=== PATIENT | female | born 1970 | race American Indian/Alaskan Native ===

== ENCOUNTER 2018-02-14 17:53 | Inpatient (IN) | payer MEDICAID ==
[2018-02-14 18:37] LABS: Basophils % (Auto) 0.7 % (0.0-1.8); Eosinophils % (Auto) 0.3 % (0.0-4.3); Hematocrit 39.9 % (30.3-42.9); Lymphocytes # (Auto) 1.4 K/mm3 (1.2-5.4); Lymphocytes % (Auto) 34.5 % (13.4-35.0); Mean Corpuscular HGB Conc 33 % (30-34); Mean Corpuscular Hemoglobin 33 pg (28-32); Mean Corpuscular Volume 100 fl (79-97); Monocytes # (Auto) 0.5 K/mm3 (0.0-0.8); Monocytes % (Auto) 12.5 % (0.0-7.3); Platelet Count 137 K/mm3 (140-440); Red Blood Count 3.99 M/mm3 (3.65-5.03); Red Cell Distribution Width 14.7 % (13.2-15.2)
[2018-02-14 18:48] LABS: Alanine Aminotransferase 38 units/L (7-56); Albumin 4.2 g/dL (3.9-5); BUN/Creatinine Ratio 9; Blood Urea Nitrogen 7 mg/dL (7-17); Calcium 9.6 mg/dL (8.4-10.2); Hemolysis Index 7; Lipase 72 units/L (13-60)
[2018-02-14 19:19] LABS: Bilirubin,Urine MOD (Negative); Blood,Urine SM (Negative); Color,Urine Amber (Yellow); Mucus,Urine 3+ /HPF
[2018-02-14 19:31] LABS: Protein,Urine >500 mg/dL (Negative)
[2018-02-14 19:38] LABS: Ictotest,Urine Positive (Negative)
[2018-02-14] MEDS ORDERED: ZOFRAN IV ONE (21:24)
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
[2018-02-14] MEDS ORDERED: D5NS 1,000 ML IV SCH ×2 (22:00→23:00)
--- NOTE | 2018-02-14 22:31 | Cat Scan Report ---
FINAL REPORT PROCEDURE: CT ABDOMEN PELVIS W CON TECHNIQUE: Computerized axial tomography of the abdomen and pelvis was performed after the IV injection of iodinated nonionic contrast. HISTORY: epigastric pain, n,v, po intolerance COMPARISON: 02/15/2015 FINDINGS: Visualized lower thorax: No significant abnormality. Liver: There is diffuse low attenuation of the liver, compatible with fatty infiltration. Gallbladder is distended. Common bile duct is dilated up to 8 millimeters in caliber Spleen: Normal size and attenuation. Gallbladder and biliary system: Normal. Pancreas: Normal. Adrenals: Normal. Kidneys: Normal. GI tract: The appendix is visualized and does not appear inflamed. No bowel obstruction or acute inflammation is seen. Lymph nodes and mesentery: Normal. Vasculature: Normal. Bladder: Normal. Reproductive organs: Intrauterine device is located in the lower uterine segment and endocervical canal. Peritoneum: No free fluid. Musculoskeletal structures: There are degenerative disc and facet arthritic changes at L5-S1. Other: None. IMPRESSION: The gallbladder is distended. There is also dilatation of the common bile duct. Intrauterine device is positioned in the lower uterine segment and endocervical canal. Recommend gynecologic consultation. Fatty infiltration of the liver
[2018-02-14] MEDS ORDERED: PEPCID IV ONE (22:38)
[2018-02-14] MEDS ORDERED: ATIVAN IV ONE (23:32)
[2018-02-14] MEDS ORDERED: MAGNESIUM SULFATE 1 GM in NACL 0.9% 50 ML IV ONE (23:33)
--- NOTE | 2018-02-14 23:45 | Ultrasound Report ---
FINAL REPORT EXAM: US ABDOMEN LIMITED HISTORY: n,v abd pain, distended gb on ct COMPARISON: CT abdomen pelvis February 14, 2018. TECHNIQUE: Several real-time grayscale and color Doppler images were obtained. FINDINGS: There is increased echogenicity of the liver compatible with fatty infiltration. Visualized aorta is normal in caliber. Right kidney measures 10.7 centimeters in length. No hydronephrosis or gross focal renal lesion. No shadowing gallstones or gallbladder wall thickening. No pericholecystic fluid. The common bile duct measures 4 millimeters within normal limits. IMPRESSION: No cholelithiasis or biliary dilatation. Diffuse fatty infiltration of the liver.
[2018-02-15] MEDS ORDERED: MORPHINE IV PRN (01:44)
[2018-02-15] MEDS ORDERED: REGLAN IV PRN (01:44)
[2018-02-15] MEDS ORDERED: ZOFRAN IV PRN (01:44)
[2018-02-15] MEDS ORDERED: SODIUM CHLORIDE FLUSH SYRINGE 10 ML IV PRN (01:44)
[2018-02-15] MEDS ORDERED: TYLENOL PO PRN (01:44)
[2018-02-15] MEDS ORDERED: PHENERGAN PR PRN (01:44)
--- NOTE | 2018-02-15 01:44 | History and Physical Report ---
History of Present Illness Date of examination: 02/15/18 History of present illness: 47 year old woman with history of hypertension, GERD comes to the ER for nausea , vomiting, unable to tolerate oral intake for 3 weeks.Also complain of pain inthe epigastric area, sharp, intensity 5/10, intermittent every 5 minutes, no radiation. she had similar symptoms 3 years ago, work up including EGD was negative Review of systems Constitutional: no weight loss, chills Ears, eyes, nose, mouth and throat: no nasal congestion, no nasal discharge, no sinus pressure, no vision change, no red eye. Neck: No neck pain or rigidity. Cardiovascular: no chest pain, palpitation Respiratory: no cough, shortness of breath Gastrointestinal: no hematochezia Genitourinary : no dysuria, frequency , no hematuria Musculoskeletal: no joint swelling or muscle ache Integumentary: no rash, no pruritis Neurological: no parathesias, no numbness, no focal weakness Endocrine: no cold or heat intolerance, no polyuria or polydipsia Hematologic/Lymphatic: no easy bruising, no easy bleeding, no gland swelling Allergic/Immunologic: no urticaria, no angioedema. PAST MEDICAL HISTORY: hypertension,GERD PAST SURGICAL HISTORY: KNEE, SHOULDER SOCIAL HISTORY:Drink 1/2 to 1 pint of liquor every other day, smokes, no drugs FAMILY HISTORY: Hypertension Medications and Allergies Allergies Allergy/AdvReac Type Severity Reaction Status Date / Time latex Allergy Itching Verified 02/14/18 18:00 Penicillins Allergy Angioedema Verified 02/14/18 18:00 Home Medications Medication Instructions Recorded Confirmed Last Taken Type No Known Home Medications [No 02/16/18 02/16/18 Unknown History Reported Home Medications] Exam - Physical Exam Narrative exam: Gen. appearance: Patient lying in bed, no apparent distress HEENT: Normocephalic, atraumatic, pupils equally round and reactive to light, extraocular movement intact, and no sclericterus,. No JVD or thyromegaly or nodule,neck supple, no carotid bruit ,mucous membranes moist, no exudate or erythema Heart: S1, S2, regular rate and rhythm Lungs: Clear bilaterally, breathing comfortable Abdomen: Positive bowel sounds, nontender, nondistended, no organomegaly Extremity: No edema, no cyanosis, clubbing Skin: No rash, nodules, warm, dry Neuro: Oriented 3, cranial nerves II-12 intact, speech is fluent, sensory intact - Constitutional Vitals: Temp Pulse Resp BP Pulse Ox 98.6 F 65 15 133/93 98 02/14/18 18:00 02/14/18 23:00 02/14/18 23:00 02/14/18 23:00 02/14/18 23:00 Results - Labs CBC & Chem 7: 02/16/18 05:27 02/16/18 05:27 Labs: Abnormal lab results 02/14/18 02/14/18 02/14/18 Range/Units 18:24 18:24 19:00 WBC 4.1 L (4.5-11.0) K/mm3 MCV 100 H (79-97) fl MCH 33 H (28-32) pg Plt Count 137 L (140-440) K/mm3 [place] % (Auto) 12.5 H (0.0-7.3) % Sodium 136 L (137-145) mmol/L Chloride 90.7 L (98-107) mmol/L Magnesium (1.7-2.3) mg/dL Total Bilirubin 1.50 H (0.1-1.2) mg/dL AST 147 H (5-40) units/L Lipase 72 H (13-60) units/L Ur Specific [place] 1.033 H (1.003-1.030) 02/14/18 Range/Units 22:30 WBC (4.5-11.0) K/mm3 MCV (79-97) fl MCH (28-32) pg Plt Count (140-440) K/mm3 [place] % (Auto) (0.0-7.3) % Sodium (137-145) mmol/L Chloride (98-107) mmol/L Magnesium 1.50 L (1.7-2.3) mg/dL Total Bilirubin (0.1-1.2) mg/dL AST (5-40) units/L Lipase (13-60) units/L Ur Specific [place] (1.003-1.030) - Imaging and Cardiology CT scan - abdomen: report reviewed CT scan - pelvis: report reviewed US - abdomen: report reviewed Assessment and Plan Assessment Persistent nausea, vomiting, Abdominal pain Alcohol withdrawal Alcohol abuse Thrombocytopenia Plan Admit to medicine Stat IV fluid, antiemetics, consult GI Start CIWA protocol with IV ativan DVT prophalaxis
[2018-02-15] MEDS ORDERED: ATIVAN IV PRN ×2 (01:50)
[2018-02-15 02:49] LABS: Creatine Kinase MB 1.5 ng/mL (0.0-4.0)
[2018-02-15 09:26] LABS: Creatine Kinase MB 1.3 ng/mL (0.0-4.0)
[2018-02-15] MEDS: FOLVITE PO SCH (10:02)
[2018-02-15] MEDS: NACL 0.45% 1000 ML 1,000 ML IV SCH ×2 (10:02→18:04)
[2018-02-15] MEDS: VITAMIN B-1 PO SCH (10:02)
[2018-02-15] MEDS: SODIUM CHLORIDE FLUSH SYRINGE 10 ML IV SCH (10:03)
--- NOTE | 2018-02-15 13:57 | Consultation ---
REFERRING PHYSICIAN: Dr. Ally Azul. INDICATION: 1. Nausea, vomiting. 2. Epigastric pain. HISTORY OF PRESENT ILLNESS: The patient is a 47-year-old black female with history of alcohol use daily who now presents for upper GI symptoms. The patient reports 3-week history of epigastric pain with nausea, vomiting, and inability to keep p.o. down. She reports she had similar symptoms 3 years ago with EGD and other workup negative. She reports no NSAIDs or aspirin. She denies any lower GI symptoms including diarrhea, constipation, or rectal bleeding. The patient subsequently was seen by the Emergency Room and admitted and GI consulted. PAST MEDICAL HISTORY: Hypertension, MS, GERD. MEDICATIONS: See chart. ALLERGIES: PENICILLIN. SOCIAL HISTORY: Positive half a pint to a pint of alcohol a day. FAMILY HISTORY: Negative for colon cancer, IBD, or liver disease. REVIEW OF SYSTEMS: GENERAL: Reports mild weakness. HEENT: No visual complaints or tinnitus. PULMONARY: No shortness of breath, no cough, no chest pain. GASTROINTESTINAL: Reports epigastric pain and nausea, but now better. All points of 13-point review of systems otherwise negative. PHYSICAL EXAMINATION: VITAL SIGNS: Temperature of 98.2, pulse 79, respiration 18, blood pressure 110/69. GENERAL: Fairly nourished female in no acute distress. HEENT: Pupils are equal, round, and reactive. PULMONARY: Clear to auscultation bilaterally. CARDIOVASCULAR: Regular rhythm. Normal S1-S2. ABDOMEN: Positive bowel sounds, soft. SKIN: No obvious rashes. LABORATORY DATA: Labs pertinent for white count of 4.1, hemoglobin and hematocrit of 13 and 39.9, platelet count 137. Chem-7 within normal limits. AST and ALT of 147 and 38, total bilirubin of 1.8, alkaline phosphatase of 232. CT scan showed a slightly distended gallbladder and slightly dilated common bile duct. Ultrasound showed no gallstones and a normal common bile duct. ASSESSMENT AND PLAN: A 47-year-old female with history of chronic alcohol abuse now presents with epigastric pain with nausea, vomiting after eating. CT scan did raise the possibility of mild dilated common bile duct, which appeared normal on ultrasound. She reports her pain is now better. Management is noted below. PLAN: 1. We will review CT scan and ultrasound. 2. Antiemetics and pain medications p.r.n. 3. Watch for signs of alcohol withdrawal with CIWA protocol in place. 4. We will start p.o. with soft diet and advance based on progress. 5. We will follow. JOB# [id number] CAB/NTS
[2018-02-16] MEDS: SODIUM CHLORIDE FLUSH SYRINGE 10 ML IV SCH ×3 (01:38→21:27)
[2018-02-16] MEDS: NACL 0.45% 1000 ML 1,000 ML IV SCH ×2 (01:38→21:27)
[2018-02-16 05:40] LABS: Hematocrit 33.6 % (30.3-42.9); Hemoglobin 11.1 gm/dl (10.1-14.3); Mean Corpuscular HGB Conc 33 % (30-34); Mean Corpuscular Hemoglobin 33 pg (28-32); Mean Corpuscular Volume 100 fl (79-97); Platelet Count 104 K/mm3 (140-440); Red Blood Count 3.35 M/mm3 (3.65-5.03); Red Cell Distribution Width 14.3 % (13.2-15.2)
[2018-02-16 05:41] LABS: Basophils % (Auto) 0.5 % (0.0-1.8); Eosinophils % (Auto) 0.8 % (0.0-4.3); Lymphocytes # (Auto) 1.1 K/mm3 (1.2-5.4); Lymphocytes % (Auto) 41.7 % (13.4-35.0); Monocytes # (Auto) 0.3 K/mm3 (0.0-0.8); Monocytes % (Auto) 10.9 % (0.0-7.3)
[2018-02-16 06:51] LABS: BUN/Creatinine Ratio 6; Blood Urea Nitrogen 4 mg/dL (7-17); Calcium 8.3 mg/dL (8.4-10.2); Hemolysis Index 12
[2018-02-16] MEDS: FOLVITE PO SCH (09:59)
[2018-02-16] MEDS: VITAMIN B-1 PO SCH (10:00)
--- NOTE | 2018-02-16 13:25 | Gastroenterology Consultation ---
History of Present Illness - Reason for Consult Consult date: 02/16/18 persistent N/V Requesting physician: WENDY REYES Medications and Allergies Allergies Allergy/AdvReac Type Severity Reaction Status Date / Time latex Allergy Itching Verified 02/14/18 18:00 Penicillins Allergy Angioedema Verified 02/14/18 18:00 Home Medications Medication Instructions Recorded Confirmed Last Taken Type No Known Home Medications [No 02/16/18 02/16/18 Unknown History Reported Home Medications] Active Meds: Active Medications Acetaminophen (Tylenol) 650 mg PO Q4H PRN PRN Reason: Pain MILD(1-3)/Fever >100.5/SANTIAGO Folic Acid (Folvite) 1 mg PO QDAY [facility] Last Admin: 02/16/18 09:59 Dose: 1 mg Sodium Chloride (Nacl 0.45% 1000 Ml) 1,000 mls @ 100 mls/hr IV DIRECT [facility] Last Admin: 02/16/18 01:38 Dose: 100 mls/hr Lorazepam (Ativan) 2 mg IV Q1HR PRN PRN Reason: CIWA-Ar 8-15 Last Admin: 02/15/18 18:04 Dose: 2 mg Lorazepam (Ativan) 4 mg IV Q1HR PRN PRN Reason: CIWA-Ar 16-25 Metoclopramide HCl (Reglan) 10 mg IV Q6H PRN PRN Reason: Nausea And Vomiting Morphine Sulfate (Morphine) 2 mg IV Q4H PRN PRN Reason: Pain, Moderate (4-6) Ondansetron HCl (Zofran) 4 mg IV Q4H PRN PRN Reason: Nausea And Vomiting Promethazine HCl (Phenergan) 25 mg IN Q6H PRN PRN Reason: N/V IF NPO AND NO IV ACCESS Sodium Chloride (Sodium Chloride Flush Syringe 10 Ml) 10 ml IV BID [facility] Last Admin: 02/16/18 10:00 Dose: 10 ml Sodium Chloride (Sodium Chloride Flush Syringe 10 Ml) 10 ml IV PRN PRN PRN Reason: LINE FLUSH Thiamine HCl (Vitamin B-1) 100 mg PO DAILY [facility] Last Admin: 02/16/18 10:00 Dose: 100 mg Exam - Constitutional Vital Signs: Temp Pulse Resp BP Pulse Ox 98.8 F 90 20 135/101 99 02/16/18 08:15 02/16/18 10:57 02/16/18 10:00 02/16/18 08:15 02/16/18 08:15 - Labs CBC & Chem 7: 02/16/18 05:27 02/16/18 05:27 Lab Results: Laboratory Results - last 24 hr 02/16/18 02/16/18 05:27 05:27 WBC 2.6 L RBC 3.35 L Hgb 11.1 Hct 33.6 D MCV 100 H MCH 33 H MCHC 33 RDW 14.3 Plt Count 104 L Lymph % (Auto) 41.7 H Greene % (Auto) 10.9 H Eos % (Auto) 0.8 Baso % (Auto) 0.5 Lymph # 1.1 L Greene # 0.3 Eos # 0.0 Baso # 0.0 Seg Neutrophils % 46.1 Seg Neutrophils # 1.2 L Sodium 138 Potassium 3.3 L Chloride 98.4 Carbon Dioxide 20 L Anion Gap 23 BUN 4 L Creatinine 0.7 Estimated GFR > 60 BUN/Creatinine Ratio 6 Glucose 87 Calcium 8.3 L
--- NOTE | 2018-02-16 14:37 | Progress Note ---
Assessment and Plan Assessment and plan: 47 year old woman with history of hypertension, GERD comes to the ER for nausea , vomiting, unable to tolerate ora intake for 3 weeks.Also complain of pain inthe epigastric area, sharp, intensity 5/10, intermittent every 5 minutes, no radiation. she had similar symptoms 3 years ago, work up including EGD was negative Persistent nausea, vomiting, resolving abdominal pain, GI on board, for HIDA scan Alcohol withdrawal, cont CIWA protocol, last drink was 7 days ago, appears to be resolving Alcohol abuse, counseled, says she has outpatient connection to rehab and detox Thrombocytopenia due to etoh abuse stable History Interval history: she says that shakes have stopped, she normall gets them when she stops drinking , drinks half a bottle of vodka daily Review of systems Constitutional: No fevers, no malaise, no joint pains CVS: No chest pain, no orthopnea, no dyspnea on exertion, no pedal edema GI: No abdominal pain, no diarrhea, no vomiting, no constipation Respiratory: No shortness of breath, no wheezing, no coughing Hospitalist Physical - Physical exam Narrative exam: General.: Appears well, no distress, nontoxic HEENT: Moist mucous membranes, extraocular muscles intact, no lymphadenopathy Neck: supple Cardiac: S1-S2 heard Lungs: clear to auscultation bilaterally Abdomen: soft , nontender, nondistended, bowel sounds positive Extremities: no edema clubbing or cyanosis, Skin: no rash or lesions Neurologic: no gross focal deficits, gait somewhat hesistant, but does not appear unsteady Psych: appropriate behavior, appropriate mood, corporative, judgment intact - Constitutional Vitals: Temp Pulse Resp BP Pulse Ox 98.8 F 90 20 135/101 99 02/16/18 08:15 02/16/18 10:57 02/16/18 10:00 02/16/18 08:15 02/16/18 08:15 Results - Labs CBC & Chem 7: 02/16/18 05:27 02/16/18 05:27 Labs: Laboratory Last Values WBC 2.6 K/mm3 (4.5-11.0) L 02/16/18 05:27 RBC 3.35 M/mm3 (3.65-5.03) L 02/16/18 05:27 Hgb 11.1 gm/dl (10.1-14.3) 02/16/18 05:27 Hct 33.6 % (30.3-42.9) D 02/16/18 05:27 MCV 100 fl (79-97) H 02/16/18 05:27 MCH 33 pg (28-32) H 02/16/18 05:27 MCHC 33 % (30-34) 02/16/18 05:27 RDW 14.3 % (13.2-15.2) 02/16/18 05:27 Plt Count 104 K/mm3 (140-440) L 02/16/18 05:27 Lymph % (Auto) 41.7 % (13.4-35.0) H 02/16/18 05:27 [place] % (Auto) 10.9 % (0.0-7.3) H 02/16/18 05:27 Eos % (Auto) 0.8 % (0.0-4.3) 02/16/18 05:27 Baso % (Auto) 0.5 % (0.0-1.8) 02/16/18 05:27 Lymph # 1.1 K/mm3 (1.2-5.4) L 02/16/18 05:27 [place] # 0.3 K/mm3 (0.0-0.8) 02/16/18 05:27 Eos # 0.0 K/mm3 (0.0-0.4) 02/16/18 05:27 Baso # 0.0 K/mm3 (0.0-0.1) 02/16/18 05:27 Seg Neutrophils % 46.1 % (40.0-70.0) 02/16/18 05:27 Seg Neutrophils # 1.2 K/mm3 (1.8-7.7) L 02/16/18 05:27 Sodium 138 mmol/L (137-145) 02/16/18 05:27 Potassium 3.3 mmol/L (3.6-5.0) L 02/16/18 05:27 Chloride 98.4 mmol/L (98-107) 02/16/18 05:27 Carbon Dioxide 20 mmol/L (22-30) L 02/16/18 05:27 Anion Gap 23 mmol/L 02/16/18 05:27 BUN 4 mg/dL (7-17) L 02/16/18 05:27 Creatinine 0.7 mg/dL (0.7-1.2) 02/16/18 05:27 Estimated GFR > 60 ml/min 02/16/18 05:27 BUN/Creatinine Ratio 6 % 02/16/18 05:27 Glucose 87 mg/dL (65-100) 02/16/18 05:27 Calcium 8.3 mg/dL (8.4-10.2) L 02/16/18 05:27 Magnesium 1.50 mg/dL (1.7-2.3) L 02/14/18 22:30 Total Bilirubin 1.50 mg/dL (0.1-1.2) H 02/14/18 18:24 AST 147 units/L (5-40) H 02/14/18 18:24 ALT 38 units/L (7-56) 02/14/18 18:24 Alkaline Phosphatase 64 units/L (35-129) 02/14/18 18:24 Total Creatine Kinase 200 units/L (30-135) H 02/15/18 08:48 CK-MB (CK-2) 1.3 ng/mL (0.0-4.0) 02/15/18 08:48 CK-MB (CK-2) Rel Index 0.6 (0-4) 02/15/18 08:48 Troponin T < 0.010 ng/mL (0.00-0.029) 02/15/18 08:48 Total Protein 8.0 g/dL (6.3-8.2) 02/14/18 18:24 Albumin 4.2 g/dL (3.9-5) 02/14/18 18:24 Albumin/Globulin Ratio 1.1 % 02/14/18 18:24 Lipase 72 units/L (13-60) H 02/14/18 18:24 HCG, Qual Negative (Negative) 02/14/18 18:24 Urine Color Marli (Yellow) 02/14/18 19:00 Urine Turbidity Clear (Clear) 02/14/18 19:00 Urine pH 5.0 (5.0-7.0) 02/14/18 19:00 Ur Specific [place] 1.033 (1.003-1.030) H 02/14/18 19:00 Urine Protein >500 mg/dL (Negative) 02/14/18 19:00 Urine Glucose (UA) Neg mg/dL (Negative) 02/14/18 19:00 Urine Ketones 80 mg/dL (Negative) 02/14/18 19:00 Urine Blood Sm (Negative) 02/14/18 19:00 Urine Nitrite Neg (Negative) 02/14/18 19:00 Urine Bilirubin Mod (Negative) 02/14/18 19:00 Urine Ictotest Positive (Negative) 02/14/18 19:00 Urine Urobilinogen 4.0 mg/dL (<2.0) 02/14/18 19:00 Ur Leukocyte Esterase Tr (Negative) 02/14/18 19:00 Urine WBC (Auto) 6.0 /HPF (0.0-6.0) 02/14/18 19:00 Urine RBC (Auto) 5.0 /HPF (0.0-6.0) 02/14/18 19:00 U Epithel Cells (Auto) 8.0 /HPF (0-13.0) 02/14/18 19:00 Urine Mucus 3+ /HPF 02/14/18 19:00
--- NOTE | 2018-02-16 17:00 | Progress Note ---
Assessment and Plan 1. N/V - etiology unclear. May be related to EtOH. Drinks 1/2 pt vodka qod. Need to exclude biliary. No clear indication for EGD. - HIDA with CCK - monitor off EtOH 2. EtOH abuse - pt states she went through Rehab and told she is not an alcoholic. However, as above, and does feel shaky. - monitor for DTs, and watch LFTs Subjective Date of service: 02/16/18 Interval history: Improved. Has nausea, no vomiting. Estefania po somewhat. Objective - Constitutional Vitals: Vital Signs - 12hr 02/16/18 02/16/18 02/16/18 05:11 08:15 10:00 Temperature 98.9 F 98.8 F Pulse Rate 76 72 Respiratory 20 16 Rate Respiratory 20 Rate [Abdomen] Blood Pressure Blood Pressure 132/97 135/101 [Left] O2 Sat by Pulse 99 99 Oximetry 02/16/18 02/16/18 10:57 16:14 Temperature 98.6 F Pulse Rate 90 76 Respiratory 19 Rate Respiratory Rate [Abdomen] Blood Pressure 141/102 Blood Pressure [Left] O2 Sat by Pulse 100 Oximetry General appearance: Present: no acute distress, other (anxious, feels shaky) - EENT Eyes: PERRL, EOM intact ENT: hearing intact - Respiratory Respiratory effort: normal - Gastrointestinal General gastrointestinal: Present: soft, non-tender - Labs CBC & Chem 7: 02/16/18 05:27 02/16/18 05:27 Labs: Abnormal lab results 02/16/18 02/16/18 Range/Units 05:27 05:27 WBC 2.6 L (4.5-11.0) K/mm3 RBC 3.35 L (3.65-5.03) M/mm3 MCV 100 H (79-97) fl MCH 33 H (28-32) pg Plt Count 104 L (140-440) K/mm3 Lymph % (Auto) 41.7 H (13.4-35.0) % [place] % (Auto) 10.9 H (0.0-7.3) % Lymph # 1.1 L (1.2-5.4) K/mm3 Seg Neutrophils # 1.2 L (1.8-7.7) K/mm3 Potassium 3.3 L (3.6-5.0) mmol/L Carbon Dioxide 20 L (22-30) mmol/L BUN 4 L (7-17) mg/dL Calcium 8.3 L (8.4-10.2) mg/dL
[2018-02-16] MEDS: PROTONIX IV SCH (21:26)
[2018-02-17] MEDS: NACL 0.45% 1000 ML 1,000 ML IV SCH (07:21)
--- NOTE | 2018-02-17 08:43 | Progress Note ---
Assessment and Plan Assessment and plan: 47 year old woman with history of hypertension, GERD comes to the ER for nausea , vomiting, unable to tolerate ora intake for 3 weeks.Also complain of pain inthe epigastric area, sharp, intensity 5/10, intermittent every 5 minutes, no radiation. she had similar symptoms 3 years ago, work up including EGD was negative Persistent nausea, vomiting, resolving abdominal pain, GI on board, for HIDA scan Alcohol withdrawal, cont CIWA protocol, last drink was 7 days ago, appears to be resolving Alcohol abuse, counseled, says she has outpatient connection to rehab and detox Thrombocytopenia due to etoh abuse stable Diarrhea; send stool for studies, imodium prn, Ataxia; pt consult History Interval history: she says that shakes have stopped, she normall gets them when she stops drinking , drinks half a bottle of vodka daily c/o watery diarrhea Review of systems Constitutional: No fevers, no malaise, no joint pains CVS: No chest pain, no orthopnea, no dyspnea on exertion, no pedal edema GI: No abdominal pain, no diarrhea, no vomiting, no constipation Respiratory: No shortness of breath, no wheezing, no coughing Hospitalist Physical - Physical exam Narrative exam: General.: Appears well, no distress, nontoxic HEENT: Moist mucous membranes, extraocular muscles intact, no lymphadenopathy Neck: supple Cardiac: S1-S2 heard Lungs: clear to auscultation bilaterally Abdomen: soft , nontender, nondistended, bowel sounds positive Extremities: no edema clubbing or cyanosis, Skin: no rash or lesions Neurologic: no gross focal deficits, gait somewhat hesistant, but does not appear unsteady Psych: appropriate behavior, appropriate mood, corporative, judgment intact - Constitutional Vitals: Temp Pulse Resp BP Pulse Ox 98.4 F 68 18 148/104 98 02/17/18 07:40 02/17/18 07:40 02/17/18 07:40 02/17/18 07:40 02/17/18 07:40 General appearance: Present: no acute distress, other (anxious, feels shaky) Results - Labs CBC & Chem 7: 02/16/18 05:27 02/16/18 05:27 Labs: Laboratory Last Values WBC 2.6 K/mm3 (4.5-11.0) L 02/16/18 05:27 RBC 3.35 M/mm3 (3.65-5.03) L 02/16/18 05:27 Hgb 11.1 gm/dl (10.1-14.3) 02/16/18 05:27 Hct 33.6 % (30.3-42.9) D 02/16/18 05:27 MCV 100 fl (79-97) H 02/16/18 05:27 MCH 33 pg (28-32) H 02/16/18 05:27 MCHC 33 % (30-34) 02/16/18 05:27 RDW 14.3 % (13.2-15.2) 02/16/18 05:27 Plt Count 104 K/mm3 (140-440) L 02/16/18 05:27 Lymph % (Auto) 41.7 % (13.4-35.0) H 02/16/18 05:27 [place] % (Auto) 10.9 % (0.0-7.3) H 02/16/18 05:27 Eos % (Auto) 0.8 % (0.0-4.3) 02/16/18 05:27 Baso % (Auto) 0.5 % (0.0-1.8) 02/16/18 05:27 Lymph # 1.1 K/mm3 (1.2-5.4) L 02/16/18 05:27 [place] # 0.3 K/mm3 (0.0-0.8) 02/16/18 05:27 Eos # 0.0 K/mm3 (0.0-0.4) 02/16/18 05:27 Baso # 0.0 K/mm3 (0.0-0.1) 02/16/18 05:27 Seg Neutrophils % 46.1 % (40.0-70.0) 02/16/18 05:27 Seg Neutrophils # 1.2 K/mm3 (1.8-7.7) L 02/16/18 05:27 Sodium 138 mmol/L (137-145) 02/16/18 05:27 Potassium 3.3 mmol/L (3.6-5.0) L 02/16/18 05:27 Chloride 98.4 mmol/L (98-107) 02/16/18 05:27 Carbon Dioxide 20 mmol/L (22-30) L 02/16/18 05:27 Anion Gap 23 mmol/L 02/16/18 05:27 BUN 4 mg/dL (7-17) L 02/16/18 05:27 Creatinine 0.7 mg/dL (0.7-1.2) 02/16/18 05:27 Estimated GFR > 60 ml/min 02/16/18 05:27 BUN/Creatinine Ratio 6 % 02/16/18 05:27 Glucose 87 mg/dL (65-100) 02/16/18 05:27 Calcium 8.3 mg/dL (8.4-10.2) L 02/16/18 05:27 Magnesium 1.50 mg/dL (1.7-2.3) L 02/14/18 22:30 Total Bilirubin 1.50 mg/dL (0.1-1.2) H 02/14/18 18:24 AST 147 units/L (5-40) H 02/14/18 18:24 ALT 38 units/L (7-56) 02/14/18 18:24 Alkaline Phosphatase 64 units/L (35-129) 02/14/18 18:24 Total Creatine Kinase 200 units/L (30-135) H 02/15/18 08:48 CK-MB (CK-2) 1.3 ng/mL (0.0-4.0) 02/15/18 08:48 CK-MB (CK-2) Rel Index 0.6 (0-4) 02/15/18 08:48 Troponin T < 0.010 ng/mL (0.00-0.029) 02/15/18 08:48 Total Protein 8.0 g/dL (6.3-8.2) 02/14/18 18:24 Albumin 4.2 g/dL (3.9-5) 02/14/18 18:24 Albumin/Globulin Ratio 1.1 % 02/14/18 18:24 Lipase 72 units/L (13-60) H 02/14/18 18:24 HCG, Qual Negative (Negative) 02/14/18 18:24 Urine Color Marli (Yellow) 02/14/18 19:00 Urine Turbidity Clear (Clear) 02/14/18 19:00 Urine pH 5.0 (5.0-7.0) 02/14/18 19:00 Ur Specific [place] 1.033 (1.003-1.030) H 02/14/18 19:00 Urine Protein >500 mg/dL (Negative) 02/14/18 19:00 Urine Glucose (UA) Neg mg/dL (Negative) 02/14/18 19:00 Urine Ketones 80 mg/dL (Negative) 02/14/18 19:00 Urine Blood Sm (Negative) 02/14/18 19:00 Urine Nitrite Neg (Negative) 02/14/18 19:00 Urine Bilirubin Mod (Negative) 02/14/18 19:00 Urine Ictotest Positive (Negative) 02/14/18 19:00 Urine Urobilinogen 4.0 mg/dL (<2.0) 02/14/18 19:00 Ur Leukocyte Esterase Tr (Negative) 02/14/18 19:00 Urine WBC (Auto) 6.0 /HPF (0.0-6.0) 02/14/18 19:00 Urine RBC (Auto) 5.0 /HPF (0.0-6.0) 02/14/18 19:00 U Epithel Cells (Auto) 8.0 /HPF (0-13.0) 02/14/18 19:00 Urine Mucus 3+ /HPF 02/14/18 19:00
[2018-02-17] MEDS ORDERED: IMODIUM A-D PO PRN (12:09)
[2018-02-17] MEDS ORDERED: VASELINE LIP THERAPY TP PRN (12:09)
[2018-02-17] MEDS ORDERED: APRESOLINE IV PRN (12:09)
--- NOTE | 2018-02-17 13:39 | Event Note ---
Date: 02/17/18 Patient off floor for HIDA scan. Further recommendations pending results.
[2018-02-17] MEDS ORDERED: KINEVAC IV ONE ×2 (14:33→15:00)
[2018-02-17] MEDS ORDERED: WATER FOR INJ (PF) 10 ML ONE (14:34)
[2018-02-17] MEDS ORDERED: WATER FOR INJ (PF) IV ONE (14:38)
--- NOTE | 2018-02-17 15:42 | Ultrasound Report ---
ULTRASOUND PELVIC COMPLETE ULTRASOUND TRANSVAGINAL HISTORY: Intrauterine device misplaced. COMPARISON: CT abdomen pelvis with contrast dated 02/14/18. TECHNIQUE: Transabdominal and transvaginal ultrasound with color doppler interrogation. FINDINGS: Uterus: The uterus is anteverted. The uterus measures 10.2 x 3.9 x 4.9 cm. A 2.4 cm intramural fibroid is identified in the anterior wall. A 3.1 cm intramural fibroid is noted in the posterior wall. Normal cervix. Endometrium: The endometrium measures 5 mm in thickness. The intrauterine device is identified and appears to have a low position within the endometrial canal. The IUD extends from the lower uterine segment into the endocervical canal. Right ovary: Not identified. Left ovary: 2.8 x 2.4 x 3.1 cm. A 2.6 cm cyst is identified in the left ovary. No pelvic fluid or mass is identified. Normal color doppler interrogation. IMPRESSION: Low position of the IUD as outlined above. No evidence for uterine perforation. Uterine fibroids. 2.6 cm left ovarian cyst.
--- NOTE | 2018-02-17 16:07 | Nuclear Medicine Report ---
HEPATOBILIARY SCAN: History: Nausea and vomiting. Following the injection of the radionuclide, serial scanning was obtained over the right upper quadrant. Initial imaging of the liver demonstrates a relatively normal activity pattern. Progressive concentration of the radionuclide in the bile ducts, with filling of both the gallbladder and small bowel, is identified within a normal time period. The gallbladder ejection fraction is severely decreased measuring 9%. The patient reports reproduced pain and cramps during the infusion of CCK. IMPRESSION: The cystic duct is patent. Decreased gallbladder ejection fraction consistent with biliary dyskinesia. Symptomatology as described.
[2018-02-17] MEDS: FOLVITE PO SCH (17:35)
[2018-02-17] MEDS: SODIUM CHLORIDE FLUSH SYRINGE 10 ML IV SCH ×2 (17:35→21:38)
[2018-02-17] MEDS: PROTONIX IV SCH ×2 (17:35→21:38)
[2018-02-17] MEDS: VITAMIN B-1 PO SCH (17:36)
--- NOTE | 2018-02-17 18:16 | History and Physical Report ---
History of Present Illness Date of examination: 02/17/18 Date of admission: 02/15/18 01:44 Chief complaint: consulted for misplaced IUD History of present illness: this is a 47 yo G3 admitted for nausea and vomiting and abdominal pain. She states that durig her cycles they are unbearable with lots of cramping. Incidental finding of IUD in lower segment of the lower uterine segment. I was called to evaluate and treat. US performed that verified the misplaced position of the IUD. Patient states that she has paraguard for years but recently last 4 months of dysmenorrhea Past History Past Medical History: hypertension, GERD Past Surgical History: other (knee surgery ) [employer] History: fibroids Family/Genetic History: hypertension Social history: single, alcohol abuse. denies: smoking, prescription drug abuse Medications and Allergies Allergies Allergy/AdvReac Type Severity Reaction Status Date / Time latex Allergy Itching Verified 02/14/18 18:00 Penicillins Allergy Angioedema Verified 02/14/18 18:00 Home Medications Medication Instructions Recorded Confirmed Last Taken Type No Known Home Medications [No 02/16/18 02/16/18 Unknown History Reported Home Medications] Active Meds: Active Medications Acetaminophen (Tylenol) 650 mg PO Q4H PRN PRN Reason: Pain MILD(1-3)/Fever >100.5/SANTIAGO Folic Acid (Folvite) 1 mg PO QDAY ABBI Last Admin: 02/17/18 17:35 Dose: 1 mg Hydralazine HCl (Apresoline) 5 mg IV Q4HR PRN PRN Reason: BP >160/100 Hydrophilic Ointment (Vaseline Lip Therapy) 1 applic TP DIRECT PRN PRN Reason: Dry Lips Loperamide HCl (Imodium A-D) 2 mg PO Q2H PRN PRN Reason: Diarrhea Last Admin: 02/17/18 17:40 Dose: 2 mg Lorazepam (Ativan) 2 mg IV Q1HR PRN PRN Reason: CIWA-Ar 8-15 Last Admin: 02/15/18 18:04 Dose: 2 mg Lorazepam (Ativan) 4 mg IV Q1HR PRN PRN Reason: CIWA-Ar 16-25 Metoclopramide HCl (Reglan) 10 mg IV Q6H PRN PRN Reason: Nausea And Vomiting Morphine Sulfate (Morphine) 2 mg IV Q4H PRN PRN Reason: Pain, Moderate (4-6) Ondansetron HCl (Zofran) 4 mg IV Q4H PRN PRN Reason: Nausea And Vomiting Pantoprazole Sodium (Protonix) 40 mg IV BID [facility] Last Admin: 02/17/18 17:35 Dose: 40 mg Promethazine HCl (Phenergan) [address] Q6H PRN PRN Reason: N/V IF NPO AND NO IV ACCESS Sodium Chloride (Sodium Chloride Flush Syringe 10 Ml) 10 ml IV BID [facility] Last Admin: 02/17/18 17:35 Dose: 10 ml Sodium Chloride (Sodium Chloride Flush Syringe 10 Ml) 10 ml IV PRN PRN PRN Reason: LINE FLUSH Thiamine HCl (Vitamin B-1) 100 mg PO DAILY [facility] Last Admin: 02/17/18 17:36 Dose: 100 mg Review of Systems Gastrointestinal: abdominal pain, nausea, vomiting - Vital Signs Vital signs: Vital Signs Temp Pulse Resp Pulse Ox 98.6 F 137 H 18 100 02/14/18 18:00 02/14/18 18:00 02/14/18 18:00 02/14/18 18:00 Temp Pulse Resp BP Pulse Ox 98.5 F 77 18 146/111 94 02/17/18 16:00 02/17/18 16:00 02/17/18 16:00 02/17/18 16:00 02/17/18 16:00 - Physical Exam Breasts: Positive: deferred Cardiovascular: Regular rate, Normal S1 Lungs: Positive: Clear to auscultation, Normal air movement Abdomen: Positive: normal appearance, soft, normal bowel sounds. Negative: distention, tenderness, guarding Genitourinary (Female): Positive: normal external genitalia, normal perenium Vulva: both: normal Vagina: Positive: normal moisture Cervix: Positive: other (iud string visualized ). Negative: lesion Uterus: Positive: normal size, normal contour Anus/Rectum: Positive: normal perianal skin Extremities: Positive: normal Deep Tendon Reflex Grade: Normal +2 Results Result Diagrams: 02/16/18 05:27 02/16/18 05:27 All other labs normal. Ultrasound: report reviewed CT scan - abdomen: report reviewed Assessment and Plan I have identified this patient to be Corinna Woodth She presents today for the removal of her IUD due to incorrect placement The IUD was placed at [facility] She has had the IUD in place for several years . The IUD type is Paraguard. She is up to date on her pap smear screening and sexually transmitted illness testing. She does have abdominal pain with cycles currently no pain, fever, chills nor dysuria. Patient's last menstrual period was 3 weeks ago expecting her period next week Friday She would like to have another IUD inserted:yes Procedure Note: A consent form was signed prior to the removal and is to be scanned into the record. She appears well, in no apparent distress. Alert, pleasant and cooperative. Vital signs are as documented in vital signs section. Time out taken: 615p Following information identified: Patient:Aileen Wood Procedure: IUD removal Pelvic exam: uterus ANTEVERTED Cervix (ANTERIOR. No cervical motion tenderness. No adnexal tenderness. No cervicitis. Speculum placed. The IUD strings ARE seen at external os and grasped with sterile ring forceps and removed WITHOUT difficulty. An IUD hook or other device WAS NOT needed.Nina did tolerate the procedure well. There was a complication.
[2018-02-18] MEDS: FOLVITE PO SCH (09:21)
[2018-02-18] MEDS: VITAMIN B-1 PO SCH (09:21)
[2018-02-18] MEDS: PROTONIX IV SCH ×2 (09:21→21:32)
[2018-02-18] MEDS: SODIUM CHLORIDE FLUSH SYRINGE 10 ML IV SCH ×2 (09:22→21:32)
--- NOTE | 2018-02-18 09:43 | Gastroenterology Progress Note ---
Assessment and Plan 1.persistent N/V 2.epigastric pain 3.ETOH abuse -afebrile -WBC-2.6 -CT showed fatty infiltration of the liver -abd U/S revealed no cholelithiasis or biliary dilation -HIDA scan showed EF of 9% consistent with biliary dyskinesia, but no obstruction -last EGD negative -no placed for repeat EGD at this time -etiology-most likely 2/2 biliary dyskinesia -recommend a surgery consult -alcohol cessaction discussed with patient- (drinks 1/2 pt vodka qod)-monitor for DT -continue to trend labs and supportive care -further management per surgery -will sign off, please call if needed Subjective Date of service: 02/18/18 Principal diagnosis: persistent N/V Interval history: Patient with continued symptoms of abd pain and N/V x 1 episode this am. Unable to tolerate PO intake. Objective - Constitutional Vitals: Temp Pulse Resp BP Pulse Ox 98.2 F 60 18 134/73 98 02/18/18 07:58 02/18/18 07:58 02/18/18 07:58 02/18/18 07:58 02/18/18 08:09 General appearance: no acute distress - EENT Eyes: PERRL, EOM intact ENT: hearing intact - Respiratory Respiratory: bilateral: CTA - Cardiovascular Rhythm: regular Heart Sounds: Present: S1 & S2 - Gastrointestinal General gastrointestinal: Present: soft, tender (epigastric/RUQ/LUQ), non- distended, normal bowel sounds - Neurologic Neurological: alert and oriented x3 - Labs CBC & Chem 7: 02/16/18 05:27 02/16/18 05:27
--- NOTE | 2018-02-18 12:52 | Consultation ---
History of Present Illness Consult date: 02/18/18 Chief complaint: Abdominal pain, nausea, vomiting - History of present illness History of present illness: 47-year-old female with past medical history of hypertension presents to the hospital with complaints of ongoing nausea, vomiting, abdominal pain that started one year ago. The patient states that she is nauseated all of the time and frequently vomits after every meal, or drinking liquids. The emesis is bilious at times and sometimes contains streaks of blood. She states that this started more than 3 years ago and she was worked up by GI and her family practice doctor but no explanation could be found. She states that after this, the symptoms resolved and she had not had problems up until last year. She states that at first, she would throw up occasionally after eating. This has gradually gotten worse and now she throws up with almost every meal. She states that over the last few days she's been having reflux symptoms and has been drinking vodka in order to help with the tenderness in her throat. Patient states she drinks a half point of vodka every other day. Multiple times during the interview, she adamantly states that she has not an alcoholic. In addition to the nausea and vomiting, she complains of upper abdominal pain , nonradiating, which is intermittent, sharp in nature, not related to food intake. Patient states she vomited last night. The patient had a full workup and GI evaluation during this admission. A HIDA scan with EF was performed which shows gallbladder ejection fraction of 9%. Past History Past Medical History: hypertension Past Surgical History: tonsillectomy (right hip and knee surgery), Other Social history: single, alcohol abuse (1/2 pint of vodka every other day). denies: smoking, prescription drug abuse Family history: cancer, hypertension Medications and Allergies Allergies Allergy/AdvReac Type Severity Reaction Status Date / Time latex Allergy Itching Verified 02/14/18 18:00 Penicillins Allergy Angioedema Verified 02/14/18 18:00 Home Medications Medication Instructions Recorded Confirmed Last Taken Type No Known Home Medications [No 02/16/18 02/16/18 Unknown History Reported Home Medications] Active Meds: Active Medications Acetaminophen (Tylenol) 650 mg PO Q4H PRN PRN Reason: Pain MILD(1-3)/Fever >100.5/SANTIAGO Folic Acid (Folvite) 1 mg PO QDAY ABBI Last Admin: 02/18/18 09:21 Dose: 1 mg Hydralazine HCl (Apresoline) 5 mg IV Q4HR PRN PRN Reason: BP >160/100 Hydrophilic Ointment (Vaseline Lip Therapy) 1 applic TP DIRECT PRN PRN Reason: Dry Lips Loperamide HCl (Imodium A-D) 2 mg PO Q2H PRN PRN Reason: Diarrhea Last Admin: 02/17/18 17:40 Dose: 2 mg Lorazepam (Ativan) 2 mg IV Q1HR PRN PRN Reason: CIWA-Ar 8-15 Last Admin: 02/15/18 18:04 Dose: 2 mg Lorazepam (Ativan) 4 mg IV Q1HR PRN PRN Reason: JUNIOR-Ar 16-25 Metoclopramide HCl (Reglan) 10 mg IV Q6H PRN PRN Reason: Nausea And Vomiting Morphine Sulfate (Morphine) 2 mg IV Q4H PRN PRN Reason: Pain, Moderate (4-6) Ondansetron HCl (Zofran) 4 mg IV Q4H PRN PRN Reason: Nausea And Vomiting Last Admin: 02/17/18 21:37 Dose: 4 mg Pantoprazole Sodium (Protonix) 40 mg IV BID [facility] Last Admin: 02/18/18 09:21 Dose: 40 mg Promethazine HCl (Phenergan) 25 mg WI Q6H PRN PRN Reason: N/V IF NPO AND NO IV ACCESS Sodium Chloride (Sodium Chloride Flush Syringe 10 Ml) 10 ml IV BID [facility] Last Admin: 02/18/18 09:22 Dose: 10 ml Sodium Chloride (Sodium Chloride Flush Syringe 10 Ml) 10 ml IV PRN PRN PRN Reason: LINE FLUSH Thiamine HCl (Vitamin B-1) 100 mg PO DAILY [facility] Last Admin: 02/18/18 09:21 Dose: 100 mg Review of Systems All systems: negative (10 point ROS performed and negative except for that listed in HPI) Exam Vital Signs Temp Pulse Resp Pulse Ox 98.6 F 137 H 18 100 02/14/18 18:00 02/14/18 18:00 02/14/18 18:00 02/14/18 18:00 Narrative exam: Gen: AAOx3. NAD ENT: no scleral icterus or conjunctival pallor CV: s1, S2+ resp: CTAB, no w/r/r Abd: soft, NT, ND. no r/r/g Ext: no c/c/e Results - Labs 02/16/18 05:27 02/16/18 05:27 - Imaging CT scan - abdomen: report reviewed, image reviewed CT scan - pelvis: report reviewed, image reviewed US - abdomen: report reviewed, image reviewed Additional studies: HIDA scan with EF Assessment and Plan 47 yo F with biliary dyskinesia, n/v Plan; 1. I had a long discussion with patient regarding results of imaging test. Her symptoms most likely due to biliary dyskinesia and cholecystectomy in light of prior negative workups. I discussed laparoscopic cholecystectomy with the patient. All risks, benefits, and alternatives to surgery were discussed. She understands that if we remove the gallbladder there is a small chance that her symptoms could persist. 2. continue clear liquid diet 3. prn nausea control 4. DVT ppx 5. GI consult notes 6. Patient continues to be symptomatic. Will check with OR for timing and schedule for cholecystectomy. Thank you for this consultation, please call with questions or concerns.
--- NOTE | 2018-02-18 12:59 | Progress Note ---
Assessment and Plan Assessment and plan: 47 year old woman with history of hypertension, GERD comes to the ER for nausea , vomiting, unable to tolerate ora intake for 3 weeks.Also complain of pain in the epigastric area, sharp, intensity 5/10, intermittent every 5 minutes, no radiation. she had similar symptoms 3 years ago, work up including EGD was negative Biliary dyskinesia; planned for lap tamara Alcohol withdrawal, cont CIWA protocol, last drink was 7 days ago, appears to be resolving Alcohol abuse, counseled, says she has outpatient connection to rehab and detox Thrombocytopenia due to etoh abuse stable Diarrhea; resolved Ataxia; pt consult malpositioned IUD has been removed by [employer] History Interval history: she says that shakes have stopped, she normally gets them when she stops drinking, drinks half a bottle of vodka daily diarrhea now resolved Review of systems Constitutional: No fevers, no malaise, no joint pains CVS: No chest pain, no orthopnea, no dyspnea on exertion, no pedal edema GI: c/o RUQ pain, nausea, vomited last night Respiratory: No shortness of breath, no wheezing, no coughing Hospitalist Physical - Physical exam Narrative exam: General.: Appears well, no distress, nontoxic HEENT: Moist mucous membranes, extraocular muscles intact, no lymphadenopathy Neck: supple Cardiac: S1-S2 heard Lungs: clear to auscultation bilaterally Abdomen: soft , nontender, nondistended, bowel sounds positive Extremities: no edema clubbing or cyanosis, Skin: no rash or lesions Neurologic: no gross focal deficits, gait somewhat hesistant, but does not appear unsteady Psych: appropriate behavior, appropriate mood, corporative, judgment intact - Constitutional Vitals: Temp Pulse Resp BP Pulse Ox 98.0 F 65 16 140/108 100 02/18/18 11:46 02/18/18 11:46 02/18/18 11:46 02/18/18 11:46 02/18/18 11:46 General appearance: Present: no acute distress, other (anxious, feels shaky) Results - Labs CBC & Chem 7: 02/16/18 05:27 02/16/18 05:27 Labs: Laboratory Last Values WBC 2.6 K/mm3 (4.5-11.0) L 02/16/18 05:27 RBC 3.35 M/mm3 (3.65-5.03) L 02/16/18 05:27 Hgb 11.1 gm/dl (10.1-14.3) 02/16/18 05:27 Hct 33.6 % (30.3-42.9) D 02/16/18 05:27 MCV 100 fl (79-97) H 02/16/18 05:27 MCH 33 pg (28-32) H 02/16/18 05:27 MCHC 33 % (30-34) 02/16/18 05:27 RDW 14.3 % (13.2-15.2) 02/16/18 05:27 Plt Count 104 K/mm3 (140-440) L 02/16/18 05:27 Lymph % (Auto) 41.7 % (13.4-35.0) H 02/16/18 05:27 [place] % (Auto) 10.9 % (0.0-7.3) H 02/16/18 05:27 Eos % (Auto) 0.8 % (0.0-4.3) 02/16/18 05:27 Baso % (Auto) 0.5 % (0.0-1.8) 02/16/18 05:27 Lymph # 1.1 K/mm3 (1.2-5.4) L 02/16/18 05:27 [place] # 0.3 K/mm3 (0.0-0.8) 02/16/18 05:27 Eos # 0.0 K/mm3 (0.0-0.4) 02/16/18 05:27 Baso # 0.0 K/mm3 (0.0-0.1) 02/16/18 05:27 Seg Neutrophils % 46.1 % (40.0-70.0) 02/16/18 05:27 Seg Neutrophils # 1.2 K/mm3 (1.8-7.7) L 02/16/18 05:27 Sodium 138 mmol/L (137-145) 02/16/18 05:27 Potassium 3.3 mmol/L (3.6-5.0) L 02/16/18 05:27 Chloride 98.4 mmol/L (98-107) 02/16/18 05:27 Carbon Dioxide 20 mmol/L (22-30) L 02/16/18 05:27 Anion Gap 23 mmol/L 02/16/18 05:27 BUN 4 mg/dL (7-17) L 02/16/18 05:27 Creatinine 0.7 mg/dL (0.7-1.2) 02/16/18 05:27 Estimated GFR > 60 ml/min 02/16/18 05:27 BUN/Creatinine Ratio 6 % 02/16/18 05:27 Glucose 87 mg/dL (65-100) 02/16/18 05:27 Calcium 8.3 mg/dL (8.4-10.2) L 02/16/18 05:27 Magnesium 1.50 mg/dL (1.7-2.3) L 02/14/18 22:30 Total Bilirubin 1.50 mg/dL (0.1-1.2) H 02/14/18 18:24 AST 147 units/L (5-40) H 02/14/18 18:24 ALT 38 units/L (7-56) 02/14/18 18:24 Alkaline Phosphatase 64 units/L (35-129) 02/14/18 18:24 Total Creatine Kinase 200 units/L (30-135) H 02/15/18 08:48 CK-MB (CK-2) 1.3 ng/mL (0.0-4.0) 02/15/18 08:48 CK-MB (CK-2) Rel Index 0.6 (0-4) 02/15/18 08:48 Troponin T < 0.010 ng/mL (0.00-0.029) 02/15/18 08:48 Total Protein 8.0 g/dL (6.3-8.2) 02/14/18 18:24 Albumin 4.2 g/dL (3.9-5) 02/14/18 18:24 Albumin/Globulin Ratio 1.1 % 02/14/18 18:24 Lipase 72 units/L (13-60) H 02/14/18 18:24 HCG, Qual Negative (Negative) 02/14/18 18:24 Urine Color Marli (Yellow) 02/14/18 19:00 Urine Turbidity Clear (Clear) 02/14/18 19:00 Urine pH 5.0 (5.0-7.0) 02/14/18 19:00 Ur Specific [place] 1.033 (1.003-1.030) H 02/14/18 19:00 Urine Protein >500 mg/dL (Negative) 02/14/18 19:00 Urine Glucose (UA) Neg mg/dL (Negative) 02/14/18 19:00 Urine Ketones 80 mg/dL (Negative) 02/14/18 19:00 Urine Blood Sm (Negative) 02/14/18 19:00 Urine Nitrite Neg (Negative) 02/14/18 19:00 Urine Bilirubin Mod (Negative) 02/14/18 19: Urine Ictotest Positive (Negative) 02/14/18 19:00 Urine Urobilinogen 4.0 mg/dL (<2.0) 02/14/18 19:00 Ur Leukocyte Esterase Tr (Negative) 02/14/18 19:00 Urine WBC (Auto) 6.0 /HPF (0.0-6.0) 02/14/18 19:00 Urine RBC (Auto) 5.0 /HPF (0.0-6.0) 02/14/18 19:00 U Epithel Cells (Auto) 8.0 /HPF (0-13.0) 02/14/18 19:00 Urine Mucus 3+ /HPF 02/14/18 19:00
[2018-02-19] MEDS: PROTONIX IV SCH ×2 (11:21→21:56)
[2018-02-19] MEDS: FOLVITE PO SCH (11:21)
[2018-02-19] MEDS: VITAMIN B-1 PO SCH (11:21)
[2018-02-19] MEDS: SODIUM CHLORIDE FLUSH SYRINGE 10 ML IV SCH ×2 (11:22→21:56)
--- NOTE | 2018-02-19 14:41 | Progress Note ---
Assessment and Plan 47 yo F with biliary dyskinesia, n/v Plan; 1. Surgery scheduled for tomorrow 02/20 @2:30pm - All risks, benefits, and alternatives to laparoscopic, possible open, cholecystectomy were discussed. Consent obtained 2. continue clear liquid diet, NPO p MN tonight 3. prn nausea control 4. DVT ppx 5. GI consult noted Thank you for this consultation, please call with questions or concerns. Subjective Date of service: 02/19/18 Narrative: Pt seen and examined. Feeling better today. No n/v. Tolerating diet. Objective - General physical appearance Narrative Exam: Gen: AAOx3. NAD CV: S1, S2+ Resp: even and unlabored Abd: soft, NT, ND Ext: no c/c/e - Labs 02/16/18 05:27 02/16/18 05:27
--- NOTE | 2018-02-19 14:45 | Progress Note ---
Assessment and Plan Assessment and plan: 47 year old woman with history of hypertension, GERD comes to the ER for nausea , vomiting, unable to tolerate ora intake for 3 weeks.Also complain of pain in the epigastric area, sharp, intensity 5/10, intermittent every 5 minutes, no radiation. she had similar symptoms 3 years ago, work up including EGD was negative Biliary dyskinesia; planned for lap tamara tomorrow Alcohol withdrawal, cont CIWA protocol, last drink was over a week ago, appears to be resolving Alcohol abuse, counseled, says she has outpatient connection to rehab and detox Thrombocytopenia due to etoh abuse stable Diarrhea; resolved Ataxia; pt consult malpositioned IUD has been removed by [employer] INFORMATION [employer]NAGER Hospitalist Physical - Constitutional Vitals: Temp Pulse Resp BP Pulse Ox 98.3 F 53 L 16 109/69 100 02/19/18 00:25 02/19/18 00:25 02/19/18 00:25 02/18/18 23:56 02/19/18 00:25 General appearance: Present: no acute distress, other (anxious, feels shaky) Results - Labs CBC & Chem 7: 02/16/18 05:27 02/16/18 05:27 Labs: Laboratory Last Values WBC 2.6 K/mm3 (4.5-11.0) L 02/16/18 05:27 RBC 3.35 M/mm3 (3.65-5.03) L 02/16/18 05:27 Hgb 11.1 gm/dl (10.1-14.3) 02/16/18 05:27 Hct 33.6 % (30.3-42.9) D 02/16/18 05:27 MCV 100 fl (79-97) H 02/16/18 05:27 MCH 33 pg (28-32) H 02/16/18 05:27 MCHC 33 % (30-34) 02/16/18 05:27 RDW 14.3 % (13.2-15.2) 02/16/18 05:27 Plt Count 104 K/mm3 (140-440) L 02/16/18 05:27 Lymph % (Auto) 41.7 % (13.4-35.0) H 02/16/18 05:27 [place] % (Auto) 10.9 % (0.0-7.3) H 02/16/18 05:27 Eos % (Auto) 0.8 % (0.0-4.3) 02/16/18 05:27 Baso % (Auto) 0.5 % (0.0-1.8) 02/16/18 05:27 Lymph # 1.1 K/mm3 (1.2-5.4) L 02/16/18 05:27 [place] # 0.3 K/mm3 (0.0-0.8) 02/16/18 05:27 Eos # 0.0 K/mm3 (0.0-0.4) 02/16/18 05:27 Baso # 0.0 K/mm3 (0.0-0.1) 02/16/18 05:27 Seg Neutrophils % 46.1 % (40.0-70.0) 02/16/18 05:27 Seg Neutrophils # 1.2 K/mm3 (1.8-7.7) L 02/16/18 05:27 Sodium 138 mmol/L (137-145) 02/16/18 05:27 Potassium 3.3 mmol/L (3.6-5.0) L 02/16/18 05:27 Chloride 98.4 mmol/L (98-107) 02/16/18 05:27 Carbon Dioxide 20 mmol/L (22-30) L 02/16/18 05:27 Anion Gap 23 mmol/L 02/16/18 05:27 BUN 4 mg/dL (7-17) L 02/16/18 05:27 Creatinine 0.7 mg/dL (0.7-1.2) 02/16/18 05:27 Estimated GFR > 60 ml/min 02/16/18 05:27 BUN/Creatinine Ratio 6 % 02/16/18 05:27 Glucose 87 mg/dL (65-100) 02/16/18 05:27 Calcium 8.3 mg/dL (8.4-10.2) L 02/16/18 05:27 Magnesium 1.50 mg/dL (1.7-2.3) L 02/14/18 22:30 Total Bilirubin 1.50 mg/dL (0.1-1.2) H 02/14/18 18:24 AST 147 units/L (5-40) H 02/14/18 18:24 ALT 38 units/L (7-56) 02/14/18 18:24 Alkaline Phosphatase 64 units/L (35-129) 02/14/18 18:24 Total Creatine Kinase 200 units/L (30-135) H 02/15/18 08:48 CK-MB (CK-2) 1.3 ng/mL (0.0-4.0) 02/15/18 08:48 CK-MB (CK-2) Rel Index 0.6 (0-4) 02/15/18 08:48 Troponin T < 0.010 ng/mL (0.00-0.029) 02/15/18 08:48 Total Protein 8.0 g/dL (6.3-8.2) 02/14/18 18:24 Albumin 4.2 g/dL (3.9-5) 02/14/18 18:24 Albumin/Globulin Ratio 1.1 % 02/14/18 18:24 Lipase 72 units/L (13-60) H 02/14/18 18:24 HCG, Qual Negative (Negative) 02/14/18 18:24 Urine Color Marli (Yellow) 02/14/18 19:00 Urine Turbidity Clear (Clear) 02/14/18 19:00 Urine pH 5.0 (5.0-7.0) 02/14/18 19:00 Ur Specific [place] 1.033 (1.003-1.030) H 02/14/18 19:00 Urine Protein >500 mg/dL (Negative) 02/14/18 19:00 Urine Glucose (UA) Neg mg/dL (Negative) 02/14/18 19:00 Urine Ketones 80 mg/dL (Negative) 02/14/18 19:00 Urine Blood Sm (Negative) 02/14/18 19:00 Urine Nitrite Neg (Negative) 02/14/18 19:00 Urine Bilirubin Mod (Negative) 02/14/18 19:00 Urine Ictotest Positive (Negative) 02/14/18 19:00 Urine Urobilinogen 4.0 mg/dL (<2.0) 02/14/18 19:00 Ur Leukocyte Esterase Tr (Negative) 02/14/18 19:00 Urine WBC (Auto) 6.0 /HPF (0.0-6.0) 02/14/18 19:00 Urine RBC (Auto) 5.0 /HPF (0.0-6.0) 02/14/18 19:00 U Epithel Cells (Auto) 8.0 /HPF (0-13.0) 02/14/18 19:00 Urine Mucus 3+ /HPF 02/14/18 19:00
[2018-02-19] MEDS ORDERED: D5/0.45NS 1,000 ML IV SCH (17:00)
[2018-02-20] MEDS: SODIUM CHLORIDE FLUSH SYRINGE 10 ML IV SCH ×2 (10:00→22:16)
[2018-02-20] MEDS: FOLVITE PO SCH (11:28)
[2018-02-20] MEDS: VITAMIN B-1 PO SCH (11:28)
[2018-02-20] MEDS: PROTONIX IV SCH ×2 (11:28→22:16)
[2018-02-20] MEDS ORDERED: SUBLIMAZE ONE (13:13)
[2018-02-20] MEDS ORDERED: DIPRIVAN 10 MG/ML IV ONE (13:14)
[2018-02-20] MEDS ORDERED: ZEMURON IV ONE (13:16)
[2018-02-20] MEDS ORDERED: MARCAINE 0.5% 30 ML INFILTRATI ONE (13:29)
[2018-02-20] MEDS ORDERED: XYLOCAINE 1% 20 mL ONE (13:29)
[2018-02-20] MEDS ORDERED: NACL 0.9% 1000 ML 1,000 ML ONE (13:32)
--- NOTE | 2018-02-20 13:40 | Anesthesia Consultation ---
Anesthesia Consult and Med Hx Date of service: 02/20/18 - Airway Anesthetic Teeth Evaluation: Good ROM Head & Neck: Adequate Mental/Hyoid Distance: Adequate Mallampati Class: Class II Intubation Access Assessment: Probably Good - Pulmonary Exam CTA: Yes - Cardiac Exam Cardiac Exam: No Murmur - Pre-Operative Health Status ASA Pre-Surgery Classification: ASA2 Proposed Anesthetic Plan: General - Cardiovascular System Hx Hypertension: Yes
[2018-02-20] MEDS ORDERED: DEMEROL IV PRN (13:41)
[2018-02-20] MEDS ORDERED: TORADOL IV PRN (13:41)
[2018-02-20] MEDS ORDERED: NARCAN 0.4 MG/1 ML IV PRN (13:41)
--- NOTE | 2018-02-20 13:41 | Anesthesia Day of Surgery ---
Anesthesia Day of Surgery - Day of Surgery Patient Examined: Yes Patient H&P Reviewed: Yes Patient is NPO: Yes
[2018-02-20] MEDS ORDERED: QUELICIN ONE (13:44)
[2018-02-20] MEDS ORDERED: ePHEDrine 50 MG/5 ML-0.9% NACL IV ONE (13:46)
[2018-02-20] MEDS ORDERED: MARCAINE 0.5% INFILTRATI ONE ×2 (13:59)
[2018-02-20] MEDS ORDERED: XYLOCAINE 1% 20 mL INFILTRATI ONE ×2 (13:59)
[2018-02-20] MEDS ORDERED: LEVAQUIN 500MG/100ML 500 MG/100 ML BAG IV NR (14:00)
[2018-02-20] MEDS ORDERED: NACL 0.9% 1000 ML 1,000 ML IV SCH (14:00)
[2018-02-20] MEDS ORDERED: FLAGYL 500 MG/100 ML 500 MG/100 ML BAG IV NR (14:00)
--- NOTE | 2018-02-20 14:38 | Progress Note ---
Hospitalist Physical - Constitutional Vitals: Temp Pulse Resp BP Pulse Ox 97.9 F 51 L 20 177/100 100 02/20/18 12:25 02/20/18 12:25 02/20/18 12:25 02/20/18 12:25 02/20/18 12:25 General appearance: Present: no acute distress, other (anxious, feels shaky) Results - Labs CBC & Chem 7: 02/16/18 05:27 02/16/18 05:27 Labs: Laboratory Last Values WBC 2.6 K/mm3 (4.5-11.0) L 02/16/18 05:27 RBC 3.35 M/mm3 (3.65-5.03) L 02/16/18 05:27 Hgb 11.1 gm/dl (10.1-14.3) 02/16/18 05:27 Hct 33.6 % (30.3-42.9) D 02/16/18 05:27 MCV 100 fl (79-97) H 02/16/18 05:27 MCH 33 pg (28-32) H 02/16/18 05:27 MCHC 33 % (30-34) 02/16/18 05:27 RDW 14.3 % (13.2-15.2) 02/16/18 05:27 Plt Count 104 K/mm3 (140-440) L 02/16/18 05:27 Lymph % (Auto) 41.7 % (13.4-35.0) H 02/16/18 05:27 [place] % (Auto) 10.9 % (0.0-7.3) H 02/16/18 05:27 Eos % (Auto) 0.8 % (0.0-4.3) 02/16/18 05:27 Baso % (Auto) 0.5 % (0.0-1.8) 02/16/18 05:27 Lymph # 1.1 K/mm3 (1.2-5.4) L 02/16/18 05:27 [place] # 0.3 K/mm3 (0.0-0.8) 02/16/18 05:27 Eos # 0.0 K/mm3 (0.0-0.4) 02/16/18 05:27 Baso # 0.0 K/mm3 (0.0-0.1) 02/16/18 05:27 Seg Neutrophils % 46.1 % (40.0-70.0) 02/16/18 05:27 Seg Neutrophils # 1.2 K/mm3 (1.8-7.7) L 02/16/18 05:27 Sodium 138 mmol/L (137-145) 02/16/18 05:27 Potassium 3.3 mmol/L (3.6-5.0) L 02/16/18 05:27 Chloride 98.4 mmol/L (98-107) 02/16/18 05:27 Carbon Dioxide 20 mmol/L (22-30) L 02/16/18 05:27 Anion Gap 23 mmol/L 02/16/18 05:27 BUN 4 mg/dL (7-17) L 02/16/18 05:27 Creatinine 0.7 mg/dL (0.7-1.2) 02/16/18 05:27 Estimated GFR > 60 ml/min 02/16/18 05:27 BUN/Creatinine Ratio 6 % 02/16/18 05:27 Glucose 87 mg/dL (65-100) 02/16/18 05:27 Calcium 8.3 mg/dL (8.4-10.2) L 02/16/18 05:27 Magnesium 1.50 mg/dL (1.7-2.3) L 02/14/18 22:30 Total Bilirubin 1.50 mg/dL (0.1-1.2) H 02/14/18 18:24 AST 147 units/L (5-40) H 02/14/18 18:24 ALT 38 units/L (7-56) 02/14/18 18:24 Alkaline Phosphatase 64 units/L (35-129) 02/14/18 18:24 Total Creatine Kinase 200 units/L (30-135) H 02/15/18 08:48 CK-MB (CK-2) 1.3 ng/mL (0.0-4.0) 02/15/18 08:48 CK-MB (CK-2) Rel Index 0.6 (0-4) 02/15/18 08:48 Troponin T < 0.010 ng/mL (0.00-0.029) 02/15/18 08:48 Total Protein 8.0 g/dL (6.3-8.2) 02/14/18 18:24 Albumin 4.2 g/dL (3.9-5) 02/14/18 18:24 Albumin/Globulin Ratio 1.1 % 02/14/18 18:24 Lipase 72 units/L (13-60) H 02/14/18 18:24 HCG, Qual Negative (Negative) 02/14/18 18:24 Urine Color Marli (Yellow) 02/14/18 19:00 Urine Turbidity Clear (Clear) 02/14/18 19: Urine pH 5.0 (5.0-7.0) 02/14/18 19:00 Ur Specific [place] 1.033 (1.003-1.030) H 02/14/18 19:00 Urine Protein >500 mg/dL (Negative) 02/14/18 19:00 Urine Glucose (UA) Neg mg/dL (Negative) 02/14/18 19:00 Urine Ketones 80 mg/dL (Negative) 02/14/18 19:00 Urine Blood Sm (Negative) 02/14/18 19: Urine Nitrite Neg (Negative) 02/14/18 19:00 Urine Bilirubin Mod (Negative) 02/14/18 19:00 Urine Ictotest Positive (Negative) 02/14/18 19: Urine Urobilinogen 4.0 mg/dL (<2.0) 02/14/18 19:00 Ur Leukocyte Esterase Tr (Negative) 02/14/18 19:00 Urine WBC (Auto) 6.0 /HPF (0.0-6.0) 02/14/18 19:00 Urine RBC (Auto) 5.0 /HPF (0.0-6.0) 02/14/18 19:00 U Epithel Cells (Auto) 8.0 /HPF (0-13.0) 02/14/18 19:00 Urine Mucus 3+ /HPF 02/14/18 19:00
[2018-02-20] MEDS ORDERED: ROBINUL ONE ×2 (15:04)
[2018-02-20] MEDS ORDERED: ZOFRAN ONE (15:04)
[2018-02-20] MEDS ORDERED: BLOXIVERZ ONE (15:04)
--- NOTE | 2018-02-20 15:32 | Operative Report ---
Operative Report Operative Report: Date of operation: 02/20/18 Preoperative diagnosis: Biliary dyskinesia postOperative diagnoses: Same as above Procedure performed: Laparoscopic cholecystectomy Surgeon: Nano Mijares DO Anesthesia: Gen. endotracheal anesthesia Findings: Distended, bile filled gallbladder. Gallbladder decompressed - 90 mL of green bile were removed. Very fatty liver Specimen: Gallbladder Estimated blood loss: 25 mL Complications: None Disposition: Stable to PACU HPI an indication: 47-year-old female who presented to the hospital with complaints of intractable nausea and vomiting. She was found to have a gallbladder ejection fraction of 9% on HIDA scan. The remainder of the GI workup was negative for any other cause of the nausea and vomiting. The benefits of cholecystectomy were discussed with the patient along with risks and alternatives to surgery. Due to her severe symptoms, and inability to tolerate by mouth, she wished to proceed with surgery. The patient was then consented for a laparoscopic possible open cholecystectomy. All questions were answered. Procedure in detail: The patient was identified in the preoperative area and taken back to the operating room, placed on the operating room table in supine position. After anesthesia was induced, the abdomen was prepped and draped in usual sterile fashion and timeout was performed. Local anesthetic was infiltrated into all of the skin incision sites. Using an 11 blade a supraumbilical incision was made and through this a Veress needle was used to insufflate the abdomen. The position of the veress needle was confirmed with the saline drop test and the abdomen was then insufflated to 15 mmHg. The veress needle was then removed and a 5 mm trocar placed using Optiview trocar. The abdomen was then inspected and there was no underlying injury to any of the abdominal contents. An additional 12 mm subxyphoid port, and 2, 5mm RUQ ports were then placed under direct visualization. The patient was then placed into reverse Trendelberg and tilted to the left. The gallbladder was visualized and distended and could not be grasped. Therefore the gallbladder was decompressed of approximately 90 mL of green bile.. The gallbladder was then grasped and lifted cephalad. The liver was extremely fatty and made his utilization difficult and therefore we switched out to a 30 scope. The cystic duct and artery were then carefully dissected and the critical view obtained, and the cystic duct and artery were the only two structures seen entering the gallbladder. Three clips were then placed on the proximal aspect of the cystic duct and one clip distally, and 2 clips on the cystic artery proximally and one distal. The cystic duct and cystic artery were then transected in between the clips. The gallbladder was dissected off the liver bed using hook electrocautery. The gallbladder was placed into a Endo Catch bag and removed from the abdomen via the 12mm port. The gallbladder fossa was then inspected and there was no identifiable bleeding or bile leakage. Hemostasis was ensured with electrocautery and Prudencio powder was applied to the raw liver edge. The clips on the cystic duct and artery were visualized and intact. The patient was then placed into neutral position and Morison's pouch was irrigated and the irrigant returned clear. The 12 mm port fascia was closed with interrupted 0 Vicryl suture using the Bari Avila device. The remaining ports were removed under direct visualization. Skin incisions were closed with 4-0 Monocryl subcuticular stitches and skin glue. All skin incisions were once again infiltrated with local anesthetic. At the end case all sponge, instrument, sharp counts were correct 2. The patient was awoken from anesthesia, extubated, taken to PACU in stable condition.
[2018-02-21] MEDS: PERCOCET 5/325 PO PRN ×2 (04:12→10:06)
[2018-02-21] MEDS: FOLVITE PO SCH (10:04)
[2018-02-21] MEDS: SODIUM CHLORIDE FLUSH SYRINGE 10 ML IV SCH (10:05)
[2018-02-21] MEDS: VITAMIN B-1 PO SCH (10:05)
[2018-02-21] MEDS: PROTONIX IV SCH (10:05)
[2018-02-21] MEDS ORDERED: TORADOL IV ONE (12:03)
--- NOTE | 2018-02-21 12:06 | Progress Note ---
Assessment and Plan 47 yo F s/p laparoscopic cholecystectomy POD 1 Plan: 1 reg diet 2. dc IVF 3. PRN PO pain control - patient educated on asking for pain meds. Will give one dose of toradol IV now 4. OOB/ambulate 5. ok for discharge home today from surgery standpoint. May follow up in office in 2 weeks. Patient given verbal post op instructions Thank you. Please call with questions or concerns. Subjective Date of service: 02/21/18 Narrative: Pt seen and examined. States that she did not know she was supposed to ask for pain medication all night and was in a lot of pain. She states that the pain is controlled well after she received percocet. No n/v. Tolerated the regular diet this am. No f/c. She has been OOB. Objective Vital Signs - 12hr 02/21/18 02/21/18 02/21/18 01:06 05:27 07:19 Temperature 97.9 F 98.5 F 97.9 F Pulse Rate 66 69 68 Respiratory 20 20 16 Rate Blood Pressure 121/79 111/81 Blood Pressure 116/71 [Left] O2 Sat by Pulse 98 99 100 Oximetry - General physical appearance Narrative Exam: Gen: AAOx3. NAD ENT: no scleral icterus or conjunctival pallor CV: s1, S2+ resp: even and unlabored Abd: soft, ND, R upper abdominal TTP near incisions. Incisions c/d/i Ext: no c/c/e - Labs 02/16/18 05:27 02/16/18 05:27
[2018-02-21 12:29] VITALS: BP 137/86
--- NOTE | 2018-02-21 12:50 | Discharge Summary ---
Providers - Providers Date of Admission: 02/15/18 01:44 Attending physician: GRABIEL BEARD MD 02/15/18 01:44 Consult to Physician [CONS] Routine Comment: Consulting Provider: ABDULLAHI HARP Physician Instructions: Reason For Exam: persistent n/v 02/16/18 16:58 Consult to Physician [CONS] Routine Comment: Consulting Provider: BAILEE REYES Physician Instructions: Reason For Exam: IUD out of place 02/17/18 17:47 Physical Therapy Evaluation and Treat [CONS] Routine Comment: Reason For Exam: ataxia 02/18/18 09:54 Consult to Physician [CONS] Routine Comment: Consulting Provider: YOUNG MCKENNA Physician Instructions: consult surgery Reason For Exam: biliary dyskinesia 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
[2018-02-21] MEDS ORDERED: PROTONIX PO SCH (22:00)
--- NOTE | 2018-02-23 05:55 | Post Anesthesia Evaluation ---
- Post Anesthesia Evaluation Patient Participated: Yes Airway Patent: Yes Stable Respiratory Function: Yes Nausea/Vomiting: No Temp > 96.8F: Yes Pain Manageable: Yes Adequeate Hydration: Yes Anesthesia Complications: No Block Receding Appropriately: Not Applicable Patient on Ventilator: No
== END 2018-02-21 15:35 | disposition home or self-care (01) | DRG 418 ==
LOC: ED 17:53 → 4A 02-15 01:44
PROVIDERS: ADMIT Internal Medicine; ATTEND Internal Medicine
PROC: 0FT44ZZ Resection of Gallbladder, Percutaneous Endoscopic Approach (ICD-10-PCS; principal; 2018-02-20)
DX: K82.8 Other specified diseases of gallbladder (principal); F10.239 Alcohol dependence with withdrawal, unspecified; I10 Essential (primary) hypertension; D69.59 Other secondary thrombocytopenia; R27.0 Ataxia, unspecified; E86.0 Dehydration; E83.42 Hypomagnesemia; K21.9 Gastro-esophageal reflux disease without esophagitis; Z71.41 Alcohol abuse counseling and surveillance of alcoholic; Z80.9 Family history of malignant neoplasm, unspecified; Z82.49 Family history of ischemic heart disease and other diseases of the circulatory system; Z88.0 Allergy status to penicillin; Z91.040 Latex allergy status
CPT/HCPCS: 36415; 74177; 76705; 76830; 76856; 78227; 80048; 80053; 81001; 82550; 82553; 83690; 83735; 84484; 84703; 85025; 88304; 93005; 93010; 96361; 96365; 96375; A9537; C9113; J0330; J0360; J1885; J1956; J2060; J2270; J2405; J2704; J2710; J2765; J2805; J3010; J3475; J7030; J7042; Q9967